=== PATIENT | male | born 1985 | race Caucasian/White ===

== ENCOUNTER 2021-01-12 03:27 | Emergency (ER) | payer OTHER ==
[~2021-01-12 03:27] MED LIST: ACYC800 PO; ALBU90OI INH; AMOX500 PO; CEPH500 PO; HYDACE5 PO; IBUP800 PO; TRAM50 PO
== END 2021-01-12 04:15 | disposition home or self-care (01) ==
LOC: ER 03:27
DX: L03.115 Cellulitis of right lower limb (principal)
CPT/HCPCS: 99283; A9270

== ENCOUNTER 2023-08-27 19:46 | Emergency (ER) | payer OTHER ==
[~2023-08-27] VITALS: Ht 177.8 cm; Wt 90.7 kg
[2023-08-27 19:50] VITALS: BP 113/84
[2023-08-27] MEDS ORDERED: AMOCLA875 PO (20:52)
== END 2023-08-27 21:15 | disposition home or self-care (01) ==
LOC: ER 19:46
DX: K04.7 Periapical abscess without sinus (principal); K02.9 Dental caries, unspecified
CPT/HCPCS: 96372; 99283-25; A9270; J1885